=== PATIENT | female | born 1950 | race Caucasian/White ===

== ENCOUNTER 2020-09-05 08:31 | Day surgery (SDC) | payer BC ==
[~2020-09-05 08:31] MED LIST: Lactated Ringers 1,000 ML IV SCH; Sodium Chloride 0.9% 10 ML Syringe FLUSH PRN
[2020-09-05] MEDS ORDERED: Glycopyrrolate 0.2 MG/ML 5 ML MDV IV ONE (08:32)
[2020-09-05] MEDS ORDERED: diphenhydrAMINE 50 MG/ML SDV IVPUSH ONE (08:32)
[2020-09-05] MEDS ORDERED: Lidocaine 2% 100 MG/5 ML Syringe IVPUSH ONE (08:32)
[2020-09-05] MEDS ORDERED: Ondansetron 4 MG/2 ML SDV IVPUSH ONE (08:32)
[2020-09-05] MEDS ORDERED: Dexamethasone 4 MG/ML 5 ML MDV IVPUSH ONE (08:32)
[2020-09-05] MEDS ORDERED: Ketorolac 30 MG/ML SDV IVPUSH ONE (08:32)
[2020-09-05] MEDS ORDERED: Midazolam 1 MG/ML 2 ML SDV IV ONE (08:32)
[2020-09-05] MEDS ORDERED: fentaNYL 100 MCG/2 ML SDV IV ONE (08:32)
[2020-09-05] MEDS ORDERED: Propofol 200 MG/20 ML SDV IV ONE (08:32)
[2020-09-05] MEDS ORDERED: ceFAZolin 2 GM in Premix Bag 1 BAG IV ONE (10:00)
--- NOTE | 2020-09-05 10:45 | PCM.HPR ---
H & P Addendum review - H & P Addendum Review Date of Original H & P: 09/02/20 Date Reviewed: 09/05/20 Time Reviewed: 10:44 Patient was Examined: No Changes
[2020-09-05] MEDS ORDERED: Lidocaine 1% with EPINEPHrine 1:100,000 20 ML MDV INJECT ONE (11:15)
[2020-09-05] MEDS ORDERED: Bupivacaine 0.25% 30 ML SDV INJECT ONE (11:15)
--- NOTE | 2020-09-05 12:23 | PCM.OPNOTE ---
- General Post-Op/Procedure Note Date of Surgery/Procedure: 09/05/20 Operative Procedure(s): Umbicilal Hernia Repair Findings: Incarcerated Omentum Pre Op Diagnosis: Umb Hernia Post-Op Diagnosis: Same Anesthesia Technique: General LMA, Local Primary Surgeon: Noe VENTURA in mLs: 20 Complications: None Condition: Good
--- NOTE | 2020-09-05 13:23 | OR ---
DATE OF OPERATION: 09/05/2020 SURGEON: Noe Grant MD PREOPERATIVE DIAGNOSIS: Chronically incarcerated umbilical hernia. POSTOPERATIVE DIAGNOSIS: Chronically incarcerated umbilical hernia. PROCEDURE: Umbilical hernia repair with removal of incarcerated omentum. ANESTHESIA: General LMA with local. DESCRIPTION OF PROCEDURE: The patient was brought to the operating room, where general anesthesia was administered with laryngeal mask airway. IV antibiotics had been administered. Time-out was performed. The abdomen was prepped with ChloraPrep and draped sterilely. A 50:50 mixture of 1% lidocaine with epinephrine and 0.25% Marcaine was infiltrated around the umbilical area and later at the fascia level. An infraumbilical incision was made and extended into the subcutaneous tissue. The umbilical skin was dissected off the umbilical hernia sac and cleared down to the level of the fascia. Hernia sac was opened, and there was approximately 10 mL of orangish serous fluid present. Omentum was incarcerated and hard and inflamed and could not be reduced. There was no ischemia or necrosis. This omentum was taken down with hemostats and 0 Vicryl ties and sent for pathology review. The remaining omentum was reduced back into the peritoneal cavity. Hernia sac was trimmed circumferentially and also sent as specimen. The fascial edges were cleared circumferentially. The hernia defect measures 2.5 cm in diameter. The fascial edges are strong and can be reapproximated with minimal tension, so primary closure was felt appropriate. This was done after the peritoneal edges of the hernia sac were closed with running #2-0 Vicryl. The hernia defect was then closed with #1 Prolene in a far- [id number] fashion transversely orientated. This provided a tension-free repair. The fascia was injected with local anesthesia. The wound was thoroughly irrigated and hemostasis was assured. Subcutaneous tissue was reapproximated with #2-0 Vicryl and skin closed with a running #4-0 Vicryl subcuticular suture. Benzoin and Steri-Strips were placed and sterile dressing applied. The patient tolerated the procedure well. Estimated blood loss, 20 mL. She returned to postanesthesia in stable condition. /[id number] [id number]/YG
[2020-09-05 14:39] VITALS: BP 120/64; PULSE 54
== END 2020-09-05 15:20 ==
LOC: FB.MS 08:31 → FB.SDS 08:31 → FB.MS 09:00 → FB.SDS 15:20 → FB.MS 15:20
PROVIDERS: ATTEND Surgery
DX: K42.0 Umbilical hernia with obstruction, without gangrene (principal); I10 Essential (primary) hypertension; Z01.812 Encounter for preprocedural laboratory examination; Z20.822 Contact with and (suspected) exposure to COVID-19; Z98.890 Other specified postprocedural states; Z88.5 Allergy status to narcotic agent; Z88.8 Allergy status to other drugs, medicaments and biological substances
CPT/HCPCS: 00750; 49582; 87635; 88302; 88305; 88341; 88342; J0690; J1100; J1200; J1885; J2250; J2405; J2704; J3010; J3490; J7120; J2001; U0002